=== PATIENT | female | born 2000 | race American Indian/Alaskan Native ===

== ENCOUNTER 2021-09-12 12:32 | Inpatient (IN) | payer OTHER ==
[2021-09-12 14:24] LABS: Bilirubin,Urine NEG (Negative); Blood,Urine NEG (Negative); Color,Urine Yellow (Yellow); Mucus,Urine 3+ /HPF
--- NOTE | 2021-09-12 15:35 | Ultrasound Report ---
US OB limited INDICATION / CLINICAL INFORMATION: No care. COMPARISON: None available. FINDINGS: 2 images were obtained. lie is cephalic. Heart rate is 132. IMPRESSION: 1. lie is cephalic with heart rate of 132. Signer Name: Cornelius Willams MD Signed: 09/12/2021 3:18 PM Workstation Name: [id number]
[2021-09-12] MEDS ORDERED: LIDOCAINE (2%) 20 MG/1 ML VIAL 20 ML MDV INFILTRATI NR (15:56)
--- NOTE | 2021-09-12 15:56 | History and Physical Report ---
History of Present Illness Date of examination: 09/12/21 Chief complaint: ctx History of present illness: at 38.0wks with EDC 09/26/21 per pt report dated by u/s at [facility] in 2nd trimester. Pt has had no prental care because she has no ride and homeless, living in a hotel at this time. Pt admits to movement, denies LOF or vag bleed. Pt admits to headache. Denies all med problems Past History Past Medical History: no pertinent history Past Surgical History: no surgical history Social history: no significant social history - Obstetrical History Expected Date of Delivery: 09/26/21 Actual Gestation: 38 Week(s) 0 Day(s) : 3 Hx # Term Pregnancies: 2 Number of Living Children: 2 Medications and Allergies Allergies Allergy/AdvReac Type Severity Reaction Status Date / Time No Known Allergies Allergy Unverified 09/12/21 13:47 Review of Systems All systems: negative (ctx) - Vital Signs Vital signs: Vital Signs Temp Pulse Resp BP Pulse Ox 98.4 F 86 16 121/69 82 L 09/12/21 13:28 09/12/21 13:28 09/12/21 13:28 09/12/21 13:28 09/12/21 13:28 Temp Pulse Resp BP Pulse Ox 98.4 F 85 16 121/69 100 09/12/21 13:28 09/12/21 15:50 09/12/21 13:28 09/12/21 13:28 09/12/21 15:50 - Physical Exam Breasts: Positive: deferred Cardiovascular: Regular rate Lungs: Positive: Normal air movement Genitourinary (Female): Positive: normal external genitalia Vagina: Positive: normal moisture Uterus: Positive: enlarged (non-tender, gravid) - Obstetrical FHR: category 1 Uterine Contraction Monitor Mode: External Cervical Dilatation: 4 (by triage nurse) Uterine Contraction Pattern: Regular Uterine Contraction Intensity: Moderate Results Abnormal lab results 09/12/21 Range/Units Unknown Urine WBC (Auto) 85.0 H (0.0-6.0) /HPF U Epithel Cells (Auto) 17.0 H (0-13.0) /HPF All other labs normal. Assessment and Plan Term with no care and no access to u/s that dated this preg. 1. Admit to labor and delivery, expectant mgt 2. U/S for gestational age to be done 3. Walk in labs includes urine drug screen 4. Plan of care given, discussed risks, benefits and alternatives. 5. Pt will need social work consult with pt being homeless at this time
[2021-09-12] MEDS ORDERED: LACTATED RINGERS 1,000 ML IV SCH (16:00)
[2021-09-12] MEDS ORDERED: LOPERAMIDE 2 MG CAP PO PRN (16:00)
[2021-09-12] MEDS ORDERED: OXYTOCIN 10 UNIT/1 ML INJ IM PRN (16:00)
[2021-09-12] MEDS ORDERED: ACETAMINOPHEN 325 MG TAB PO PRN (16:00)
[2021-09-12] MEDS ORDERED: ePHEDrine SULFATE 50 MG/1 ML INJ IV PRN ×2 (16:00→22:37)
[2021-09-12] MEDS ORDERED: miSOPROStol 200 MCG TAB PR PRN (16:00)
[2021-09-12] MEDS ORDERED: TERBUTALINE 1 MG/1 ML INJ SUB-Q PRN (16:00)
[2021-09-12] MEDS ORDERED: PROMETHAZINE 25 MG TAB PO PRN (16:00)
[2021-09-12] MEDS ORDERED: fentaNYL 100 MCG/2 ML INJ IV PRN (16:00)
[2021-09-12] MEDS ORDERED: CARBOPROST TROMETHAMINE 250 MCG/1 ML INJ IM PRN (16:00)
[2021-09-12] MEDS ORDERED: METHYLERGONOVINE MALEATE 0.2 MG/ML VIAL IM PRN (16:00)
[2021-09-12] MEDS ORDERED: OXYTOCIN DRIP 30 UNITS/500 ML BAG IV SCH ×2 (16:00)
[2021-09-12] MEDS ORDERED: ONDANSETRON 4 MG/2 ML INJ IV PRN (16:00)
[2021-09-12] MEDS ORDERED: NalbUPHINE 10 MG/1 ML INJ IV PRN (16:00)
--- NOTE | 2021-09-12 18:33 | Event Note ---
Date: 09/12/21 (0332) Evaluated patient, she is a [facility] patient. a little to no care due to her financial situation per pt. VE /-3 soft/posterior. Ultrasound came to bs for bpp/tennille/efw.
--- NOTE | 2021-09-12 18:39 | Ultrasound Report ---
Limited OB Ultrasound Biophysical profile ultrasound HISTORY: labor. TECHNIQUE: Grayscale and color imaging performed. COMPARISON: Limited OB ultrasound from earlier today FINDINGS: Single viable intrauterine gestation with cephalic presentation. Heart rate is 142 bpm. Placenta is p osterior. JOBY is 17 cm. Overall EGA by ultrasound is 35 weeks and 5 days with estimated delivery date of 10/12/2021. On biophysical profile, the fetus received a score of 2 out of 2 for breathing, movement, posture/ton e, and JOBY. Total score was 8 out of 8. IMPRESSION: 1. Single viable intrauterine gestation as above. 2. Normal BPP. Signer Name: Erich Puente MD Signed: 09/12/2021 6:35 PM Workstation Name: [id number]
[2021-09-12] MEDS ORDERED: BUTORPHANOL 2 MG/1 ML INJ ONE (18:41)
[2021-09-12] MEDS ORDERED: BETAMET ACET/BETAMET NA PH 6 MG/ML INJ 5 ML MDV IM ONE (19:00)
[2021-09-12] MEDS ORDERED: BUTORPHANOL 2 MG/1 ML INJ IV ONE (19:00)
[2021-09-12 19:39] LABS: Hematocrit 28.9 % (30.3-42.9); Hemoglobin 8.8 gm/dl (10.1-14.3); Mean Corpuscular HGB Conc 30 % (30-34); Mean Corpuscular Volume 78 fl (79-97); Platelet Count 297 K/mm3 (140-440); Red Cell Distribution Width 16.7 % (13.2-15.2)
[2021-09-12] MEDS ORDERED: PENICILLIN G POTASSIUM 5 MIL.UNITS in SODIUM CHLORIDE 0.9% 50 ML IV ONE (21:00)
[2021-09-12] MEDS ORDERED: MINERAL OIL 30 ML ORAL LIQD PO PRN (22:00)
--- NOTE | 2021-09-12 22:23 | Anesthesia Consultation ---
Anesthesia Consult and Med Hx Date of service: 09/12/21 - Airway Anesthetic Teeth Evaluation: Poor ROM Head & Neck: Adequate Mental/Hyoid Distance: Adequate Mallampati Class: Class II Intubation Access Assessment: Good - Pulmonary Exam CTA: Yes - Cardiac Exam Cardiac Exam: RRR - Pre-Operative Health Status ASA Pre-Surgery Classification: ASA2 Proposed Anesthetic Plan: Epidural - Pulmonary Hx Asthma: Yes (ACTS UP SEASONAL) - Cardiovascular System Hx Hypertension: No - Central Nervous System Hx Seizures: No Hx Psychiatric Problems: No - Endocrine Hx Renal Disease: No Hx Hypothyroidism: No Hx Hyperthyroidism: No - Hematic Hx Anemia: No (UNSURE) Hx Sickle Cell Disease: No - Other Systems Hx Alcohol Use: No
--- NOTE | 2021-09-12 22:24 | Progress Note ---
Labor Epidural - Labor Epidural Start Time: 22:06 Stop Time: 22:12 Performed by:: MAE FERNÁNDEZ Procedure: Patient is requesting epidural for labor and pain. H&P, labs were reviewed. Patient IDed, all questions and concerns were answered, and consent was signed. Timeout was performed at bedside. Patient in sitting position. Sterile prep and drape was performed. 3ml of 1% lidocaine skin wheal at L[3]- L [4]. 17- gauge Tuohy epidural needle was advanced to loss of resistance with air technique cm. Negative CSF negative blood. Epidural catheter advanced to [15] centimeters. [negative] Aspiration [negative] test dose. Sterile dressing applied. Patient tolerated procedure.
[2021-09-12] MEDS ORDERED: NALOXONE 0.4 MG/1 ML INJ IV PRN (22:37)
[2021-09-12] MEDS ORDERED: fentaNYL-BUPIV 2 MCG/ML-0.125% 200 MCG/100 ML BAG EPIDURAL SCH (23:00)
--- NOTE | 2021-09-12 23:11 | Event Note ---
Date: 09/12/21 CC: Contractions HPI: 21-year-old at 38 weeks gestation (based on a 2nd trimester sonogram at [facility]) is admitted to labor and delivery for expectant management of labor. The patient reports contractions every 3 minutes that are regular and painful. She had an epidural placed for pain control. There is no vaginal bleeding. There is good movement. The patient reports some leakage of fluid now. O: Accucheck= ordered BP= 92/48 EFM= category 1 TOCO= q 3 min SVE= 6/70%/-3. LABS: HgBA1c= 4.9 ROM Plus= (-) GBS Culture= ordered RADIOLOGY: OB US Limited= SLIUP. Vertex. Posterior placenta. EFW= 2786 g (14th %-ile). JOBY= 17.2 cm. BPP= 8/8 IMPRESSION: 1.) 38 weeks 2.) Labor 3.) Augmentation of labor 4.) Homeless PLAN: 1.) care is limited. Hemoglobin A1c is 4.9. 2.) As GBS status is unknown at this time, given intrapartum GBS prophylaxis with penicillin only if there are risk factors per 2010 CDC MMWR and ACM guidelines. 3.) Artificially rupture membranes now and augment with Pitocin. 4.) hvac services professional consulted.
[2021-09-13] MEDS ORDERED: OXYTOCIN DRIP 30 UNITS/500 ML BAG IV SCH (01:00)
[2021-09-13] MEDS ORDERED: MAGNESIUM HYDROXIDE (MOM) ORAL LIQD UDC PO PRN (06:42)
[2021-09-13] MEDS ORDERED: ACETAMINOPHEN 325 MG TAB PO PRN (06:42)
[2021-09-13] MEDS ORDERED: LANOLIN/ZINC/DIMETHICONE (LANSINOH) 7 GM TP PRN (06:42)
[2021-09-13] MEDS ORDERED: WITCH HAZEL/ GLYCERIN PAD TP PRN (06:42)
--- NOTE | 2021-09-13 06:48 | Procedure Note ---
OB Delivery Note - Delivery Date of Delivery: 09/13/21 Surgeon: ROSETTE MITCHELL Blocking Machine Tender: NICK MASTERS Estimated blood loss: <100cc - Vaginal Delivery presentation: vertex Delivery position: OA Intrapartum events: no care Delivery induction: none Delivery augmentation: rupture of membranes, pitocin Delivery monitor: external FHT, external uterine, internal FHT, internal uterine Route of delivery: Delivery placenta: spontaneous Delivery cord: 3 umbilical vessels Episiotomy: none Delivery laceration: none Anesthesia: epidural - Infant A at 1 minute: 8 at 5 minutes: 9 Gender: Female
[2021-09-13 10:43] LABS: Amphetamine Screen,Urine Negative; Benzodiazepines Screen,Urine Negative; Cannabinoid Screen,Urine Negative; Cocaine Screen,Urine Negative; Methadone Screen,Urine Negative; Opiate Screen,Urine Negative
[2021-09-13] MEDS: DOCUSATE SODIUM 100 MG CAP PO SCH ×2 (11:18→21:47)
[2021-09-13] MEDS: IBUPROFEN 800 MG TAB PO SCH ×2 (11:18→21:47)
[2021-09-13] MEDS: HYDROcodone/ACETAMINOPHEN 5-325 MG TAB PO PRN (17:47)
[2021-09-14 07:59] LABS: Hematocrit 32.1 % (30.3-42.9); Hemoglobin 9.7 gm/dl (10.1-14.3); Mean Corpuscular HGB Conc 30 % (30-34); Mean Corpuscular Volume 79 fl (79-97); Platelet Count 356 K/mm3 (140-440); Red Blood Count 4.07 M/mm3 (3.65-5.03)
--- NOTE | 2021-09-14 09:30 | Progress Note ---
Assessment and Plan A: PPD # 1 - stable P: Discharge home in am Discharge instructions given Subjective - Subjective Date of service: 09/14/21 Principal diagnosis: PPD # 1 Patient reports: appetite normal : doing well Objective - Vital Signs Latest vital signs: Vital Signs Temp Pulse Resp BP BP Pulse Ox Pulse Ox 09/14/21 07:57 98.2 F 60 18 112/74 97 09/14/21 00:20 98.2 F 73 18 120/72 99 09/13/21 23:18 98 09/13/21 21:47 16 09/13/21 17:47 16 09/13/21 17:04 98.2 F 91 H 18 135/89 99 09/13/21 15:58 16 09/13/21 11:57 97.9 F 18 129/81 09/13/21 11:18 16 Intake and Output 09/13/21 09/14/21 09/14/21 22:59 06:59 14:59 Intake Total 840 360 120 Output Total 750 Balance 90 360 120 Intake: Oral 600 360 120 Intake, Free Water 240 Output: Urine 750 Void 750 Other: Total, Intake Amount 240 120 120 Total, Output Amount 300 # Voids Void 1 1 1 - Exam Breasts: Present: deferred Cardiovascular: Present: Regular rate Lungs: Present: Clear to auscultation Abdomen: Present: soft Vulva: both: normal Uterus: Present: fundal height below umbilicus Extremities: Present: normal Deep Tendon Reflex Grade: Normal +2 - Labs Labs: Abnormal lab results 09/14/21 Range/Units 07:36 WBC 17.6 H (4.5-11.0) K/mm3 Hgb 9.7 L (10.1-14.3) gm/dl MCH 24 L (28-32) pg RDW 17.0 H (13.2-15.2) %
--- NOTE | 2021-09-14 09:31 | Discharge Summary ---
Providers - Providers Date of Admission: 09/12/21 15:56 Date of discharge: 09/15/21 Attending physician: GEORGES ALBERTS 09/13/21 03:53 Consult to Case Management [CONS] Routine Services Needed at Discharge: Twister Tender Paper Notified:: [id number] Was contact made?: No Additional Physician Instructions: Patient is homeless. Needs to be seen by Case Management before discharge. Primary care physician: GEORGES ALBERTS Hospitalization Reason for admission: active labor Delivery: Episiotomy: none Laceration: none Other procedures: none Discharge diagnosis: IUP at term delivered baby: female Condition at discharge: Good Disposition: HOME / SELF CARE / HOMELESS Plan - Provider Discharge Summary Activity: no strenuous exercise Diet: routine Instructions: routine Additional instructions: [] Smoking cessation referral if applicable(refer to patient education folder for contact #) [] Refer to [facility]'s [facility] Booklet Call your doctor immediately for: * Fever > 100.5 * Heavy vaginal bleeding ( >1 pad per hour) * Severe persistent headache * Shortness of breath * Reddened, hot, painful area to leg or breast * Drainage or odor from incision. * Keep incision clean and dry at all times and follow doctor's instructions regarding bathing/showering - Follow up plan Follow up: GEORGES ALBERTS MD [Primary Care Provider] - 6 Weeks
[2021-09-14] MEDS: DOCUSATE SODIUM 100 MG CAP PO SCH (10:24)
[2021-09-14] MEDS: IBUPROFEN 800 MG TAB PO SCH ×2 (10:25→15:47)
--- NOTE | 2021-09-14 15:54 | Post Anesthesia Evaluation ---
- Post Anesthesia Evaluation Patient Participated: Yes Airway Patent: Yes Stable Respiratory Function: Yes Nausea/Vomiting: No Temp > 96.8F: Yes Pain Manageable: Yes Adequeate Hydration: Yes Anesthesia Complications: No Block Receding Appropriately: Yes Patient on Ventilator: No Other Comments: Patient has ambulated, consumed solids and/or fluids. No pain, redness, or swelling at site. Block is receding appropriately. Pt has no complaints or questions regarding anesthesia.
[2021-09-14] MEDS: HYDROcodone/ACETAMINOPHEN 5-325 MG TAB PO PRN (20:16)
[2021-09-15] MEDS: DOCUSATE SODIUM 100 MG CAP PO SCH (00:51)
[2021-09-15] MEDS: IBUPROFEN 800 MG TAB PO SCH ×2 (00:51→06:51)
[2021-09-15] MEDS ORDERED: medroxyPROGESTERone ACETATE 150 MG/ML SYRINGE IM ONE (06:24)
--- NOTE | 2021-09-15 12:45 | Consultation ---
History of Present Illness - Reason for Consult Consult date: 09/15/21 Reason for consult: High score on EDS - Chief Complaint Chief complaint: ctx - History of Present Psychiatric Illness Patient seen with her Nurse, Jennie, at bedside. Patient is awake, alert, her baby and appear to be in good mood. Patient describes a good and stable mood, denies being depressed or excessively nervous. Patient eats and sleeps well. Patient denies panic attacks, recurrent nightmares or flashbacks. Patient denies symptoms suggestive of OCD or PTSD. Patient denies hallucinations, paranoia, thought interference and no features suggestive of hypomania or ashlie. She completely denies suicidal or homicidal thoughts. PAST PSYCHIATRIC HISTORY: Diagnoses: Depression Suicide attempts or Self-harm behavior: Patient denies Family Psychiatric History None reported or documented SOCIAL HISTORY Marital Status: single Living Arrangements: with mother Employment Status: unemployed Access to guns/weapons: no ROS: Constitutional: Negative for weight loss ENT: Negative for stridor Respiratory: Negative for cough or hemoptysis All other systems reviewed and are negative MENTAL STATUS General Appearance and Behavior: age appropriate, good eye contact, cooperative with questioning and polite Cooperation: Cooperative Psychomotor Behavior: within normal limits Mood: OK Affect and affective range: Congruent with stated mood Thought Process: Fluent/Logical and Goal-directed Thought Content: Within reality Speech: Normal volume and Regular rate and rhythm Intellectual Functioning Average Suicidal Ideation: Denies SI Homicidal Ideation: Denies HI Impulse Control: intact Insight and Judgment: normal insight and judgment Memory: Normal Attention: Normal Orientation: alert and oriented RECOMMENDATIONS MEDICATIONS: None MEDICAL: Per primary team PYTHON ENGINEER: No DISPOSITION: Per primary team, no indication for acute inpatient psychiatric hospitalization at this time LEGAL STATUS: Voluntary FOLLOW-UP: Will sign off The patient agreed on the treatment plan, understood the risk, benefit, alternative treatment, potential consequence of no treatment, and gave informed consent. I have reviewed this treatment plan, including potential risks and benefits of medications, with the patient and/or family members and relevant hospital providers. Please contact with any questions and/or concerns. Medications and Allergies Allergies Allergy/AdvReac Type Severity Reaction Status Date / Time No Known Allergies Allergy Verified 09/14/21 23:09 Home Medications Medication Instructions Recorded Confirmed Last Taken Type No Known Home Medications [No 09/14/21 09/14/21 Unknown History Reported Home Medications] Active Meds: Active Medications Acetaminophen (Acetaminophen 325 Mg Tab) 650 mg PO Q4H PRN PRN Reason: Pain MILD(1-3)/Fever >100.5/ROGERS Last Admin: 09/13/21 15:58 Dose: 650 mg Hydrocodone Bitart/Acetaminophen (Hydrocodone/Acetaminophen 5-325 Mg Tab) 2 each PO Q6H PRN PRN Reason: Pain, Moderate (4-6) Last Admin: 09/14/21 20:16 Dose: 2 each Docusate Sodium (Docusate Sodium 100 Mg Cap) 100 mg PO BID [facility] Last Admin: 09/15/21 00:51 Dose: 100 mg Ibuprofen (Ibuprofen 800 Mg Tab) 800 mg PO Q6HR [facility] Last Admin: 09/15/21 06:51 Dose: 800 mg Magnesium Hydroxide (Magnesium Hydroxide (Mom) Oral Liqd Udc) 30 ml PO HS PRN PRN Reason: Constipation Multi-Ingredient Ointment (Lanolin/Zinc/Dimethicone (Lansinoh) 7 Gm) 1 applic TP PRN PRN PRN Reason: Sore Nipples [place]/Glycerin ([place]/ Glycerin Pad) 1 each TP PRN PRN PRN Reason: Hemorrhoid/cleansing/soothing Mental Status Exam - Vital signs Last Vital Signs Temp 97.6 F 09/15/21 00:56 Pulse 76 09/15/21 00:56 Resp 18 09/15/21 07:20 BP 112/75 09/15/21 00:56 Pulse Ox 100 09/15/21 00:56 Results Result Diagrams: 09/14/21 07:36 All other labs normal.
[2021-09-15 16:39] VITALS: BP 123/75
[2021-09-15] MEDS: HYDROcodone/ACETAMINOPHEN 5-325 MG TAB PO PRN (16:48)
== END 2021-09-15 19:30 | disposition home or self-care (01) | DRG 775 ==
LOC: TRG 12:32 → APU 12:34 → LD 15:39 → TRG 16:33 → OB 09-13 06:32
PROVIDERS: ADMIT Obstetrics & Gynecology; ATTEND Obstetrics & Gynecology
PROC: 10E0XZZ Delivery of Products of Conception, External Approach (ICD-10-PCS; principal; 2021-09-13)
PROC: 3E0R3BZ Introduction of Anesthetic Agent into Spinal Canal, Percutaneous Approach (ICD-10-PCS; 2021-09-13)
PROC: 00HU33Z Insertion of Infusion Device into Spinal Canal, Percutaneous Approach (ICD-10-PCS; 2021-09-13)
DX: O99.52 Diseases of the respiratory system complicating childbirth (principal); Z20.822 Contact with and (suspected) exposure to COVID-19; F32.A Depression, unspecified; J45.909 Unspecified asthma, uncomplicated; O99.344 Other mental disorders complicating childbirth; Z3A.38 38 weeks gestation of pregnancy; Z37.0 Single live birth
CPT/HCPCS: 36415; 76815; 76816; 76819; 80307; 81001; 82962; 83036; 84112; 85027; 86592; 86706; 86762; 86850; 86900; 86901; 87086; 87116; 87591; 87806; G0378; J3490; J0595; J0702; J1050; J2405; J2540; J2590; U0003